=== PATIENT | female | born 1960 | race Caucasian/White ===

== ENCOUNTER 2018-09-16 16:07 | Inpatient (IN) ==
[2018-09-16] MEDS ORDERED: Levofloxacin 500 MG/100 ML 500 MG/100 ML BAG IVPB ONE (16:35)
[2018-09-16] MEDS ORDERED: 0.9 % Sodium Chloride 1,000 ML IVC ONE (16:35)
[2018-09-16] MEDS ORDERED: Ipratropium/Albuterol Neb 3 ML IH ONE ×2 (16:39)
[2018-09-16 17:08] LABS: Basophils % 0.1 %; Eosinophils % 0.3 %; Hematocrit 40.3 % (35.3-44.9); Hemoglobin 13.8 g/dL (11.5-15.4); Immature Granulocytes % 0.4 % (0-4); Lymphocytes # 0.5 K/mcL (0.6-4.6); Lymphocytes % 7.9 %; Mean Corpuscular HGB Conc 34.2 g/dL (31.6-35.5); Mean Corpuscular Hemoglobin 30.2 pg (28.0-33.3); Mean Corpuscular Volume 88.2 fL (83.0-100.0); Mean Platelet Volume 11.1 fL (9.4-12.4); Monocytes # 0.4 K/mcL (0.0-1.3); Neutrophils # 5.9 K/mcL (1.6-8.9); Red Blood Count 4.57 M/mcL (3.82-4.97); Red Cell Distribution Width 14.8 % (11.5-14.5); Segmented Neutrophils % 85.3 %
[2018-09-16] MEDS ORDERED: Acetaminophen 325 MG TABLET PO ONE (17:16)
[2018-09-16 17:20] LABS: Alanine Aminotransferase 38 Units/L (7-52); Albumin 3.6 g/dL (3.5-5.7); Albumin/Globulin Ratio 0.8 (1.1-2.2); Alkaline Phosphatase 102 Units/L (34-104); Aspartate Amino Transferase 92 Units/L (13-39); BUN/Creatinine Ratio 15 (6-26); Bilirubin,Total 0.7 mg/dL (0.3-1.0); Blood Urea Nitrogen 16 mg/dL (8-23); Calcium 8.8 mg/dL (8.6-10.3); Carbon Dioxide 25 mEq/L (23-29); Chloride 88 mEq/L (98-107); Globulin 4.5 g/dL (2.4-3.5); Glucose 130 mg/dL (70-105); Osmolality,Calculated 255 (280-300); Potassium 3.1 mEq/L (3.5-5.1); Sodium 121 mEq/L (136-145); Total Protein 8.1 g/dL (6.4-8.9); eGFR For Non-African Americans 54 (> 60)
[2018-09-16 17:21] LABS: Platelet Count 85 K/mcL (140-400)
[2018-09-16 17:22] LABS: Platelet Estimate Marked Decrease (Normal)
[2018-09-16 17:23] LABS: Troponin I < 0.03 ng/mL (< 0.04)
[2018-09-16 17:24] LABS: VBG HCO3 21 mEq/L (21-27); VBG PCO2 26 mmHg (41-51); VBG PH 7.52 pH Units (7.32-7.42); VBG PO2 37 mmHg (25-50)
[2018-09-16] MEDS ORDERED: MethylPREDNISolone 40 MG/ML VIAL IVP ONE ×2 (17:52→18:33)
[2018-09-16 18:09] LABS: INR 1.3; Prothrombin Time 14.5 Seconds (9.4-12.1)
[2018-09-16 18:11] LABS: Activated Partial Thrombo Time 37.3 Seconds (26.0-36.0)
[2018-09-16] MEDS ORDERED: Naloxone 0.4 MG/ML INJ IVP PRN ×2 (18:33)
[2018-09-16] MEDS ORDERED: 0.9 % Sodium Chloride 1,000 ML IVC SCH ×2 (18:33→20:48)
[2018-09-16] MEDS ORDERED: Ondansetron 4 MG/2 ML VIAL IVP PRN (18:33)
--- NOTE | 2018-09-16 18:37 | Emergency Department Note ---
Disposition Clinical Impression: Acute exacerbation of chronic obstructive airways disease Disposition: Admitted As Inpatient Condition: Fair Time of Disposition: 18:10 SOB HPI - General Chief Complaint: ED Shortness of Breath/Dyspnea Stated Complaint: cold Time Seen by Provider: 09/16/18 16:20 Source: patient Limitations: no limitations Nursing Notes Reviewed: Yes Vital Signs Reviewed: Yes - History of Present Illness For the last 4 days Ms. Noble has had a nonproductive cough increased shortness of breath. No fevers. Positive nausea vomiting and diarrhea. She her by mouth intake has decreased markedly because of this. She is a smoker is not on home oxygen but does use albuterol nebulize twice a day. If she does not she feels more short of breath. No chest pain palpitations abdominal pain no urinary complaints no muscle aches. - Related Data Home Medications Medication Instructions Recorded Confirmed Albuterol Sulfate [Albuterol 0 puff IH Q4HR 05/26/15 09/16/18 Inhaler] Lisinopril [Zestril] 20 mg PO DAILY 05/26/15 09/16/18 Montelukast Sodium 10 mg PO DAILY 12/16/17 09/16/18 Nabumetone 500 mg PO BID PRN 12/16/17 09/16/18 Previous Rx's Medication Instructions Recorded EPINEPHrine [Epipen JR] 0.3 mg IJ ONCE #1 mls 03/03/16 Ibuprofen [Motrin] 600 mg PO Q8HR #20 tab 12/16/17 Allergies Allergy/AdvReac Type Severity Reaction Status Date / Time chlorpromazine AdvReac Joint Pain Verified 12/16/17 10:53 [From Thorazine] codeine AdvReac See Verified 05/26/15 17:16 Comments morphine AdvReac See Verified 05/26/15 17:16 Comments Constitutional: Reports: fever, chills ENT ED: Reports: congestion (This has resolved over the last couple of days) Cardiovascular: Reports: dyspnea on exertion Respiratory: Reports: cough. Denies: sputum production Gastrointestinal: Reports: nausea, vomiting, diarrhea Genitourinary: Reports: as per HPI Musculoskeletal: Denies: myalgia Integumentary: Denies: rash Neurological: Denies: headache Endocrine: Reports: fatigue Hematological/Lymphatic: Denies: easy bleeding, easy bruising Past Medical History - Past Medical History Medical history: Reports: COPD, hepatitis, hypertension Surgical history: Reports: cholecystectomy, hysterectomy Psychiatric history: Reports: no psych history - Social History Smoking Status: Current every day smoker Smokeless Tobacco Status: No Alcohol use: Reports: occasionally, heavy Drug use: Reports: marijuana Physical Exam - General Limitations: no limitations General appearance: alert, in distress - Head Head exam: atraumatic, normocephalic - Eye Eye exam: Present: normal appearance - ENT ENT exam: normal oropharynx, mucous membranes dry - Neck Neck exam: Present: normal inspection - Chest Chest inspection: Present: normal inspection, symmetric chest wall rise - Respiratory Respiratory exam: Present: respiratory distress (However able to speak in full sentences), wheezes (Inspiratory crackles left mid sound moist and are greater than contralateral side. Expiratory wheezes with fair air exchange.). Absent: accessory muscle use - Cardiovascular Cardiovascular exam: Present: tachycardia - Abdominal Exam Abdominal exam: Present: soft, Non-Tender - Extremities Exam Extremities exam: Present: normal inspection. Absent: pedal edema, calf tenderness (No calf cord erythema or edema) - Neurological Exam Neurological exam: Present: alert - Psychiatric Psychiatric exam: Present: normal affect, normal mood - Skin Skin exam: Present: warm, dry Course Vital Signs Temperature 100.3 F H 09/16/18 16:30 Pulse Rate 105 09/16/18 16:30 Respiratory Rate 20 09/16/18 16:30 Blood Pressure 116/71 09/16/18 16:30 O2 Sat by Pulse Oximetry 89 09/16/18 16:30 Temperature 98.3 F 09/16/18 19:15 Pulse Rate 88 09/16/18 19:15 Respiratory Rate 20 09/16/18 19:15 Blood Pressure 114/76 09/16/18 19:15 O2 Sat by Pulse Oximetry 97 09/16/18 19:15 Oxygen Delivery Oxygen Delivery Nasal Cannula Shortness of Breath/Dyspnea - [facility] Narrative Medical decision making narrative: COPD exacerbation. She felt subjectively better after 2 DuoNeb's. Better air exchange although she continues to wheeze. She might also have a left middle lobe pneumonia although this did not show up on chest x-ray. Levaquin 500 IV given here in the emergency department along with Solu-Medrol. Increased d- dimer noted but this is right at age adjusted norms therefore CT PE not undertaken. Ms. Noble is in stable condition awaiting transfer to the floor. Hyponatremia. Probably secondary to low by mouth intake. She received 2 L normal saline here in the emergency department and we will run her at 125 overnight and rechecked this in the morning. Hypokalemia. She was no longer feeling nauseated by the time she got to the emergency department and was tolerating by mouth supplementation of potassium. She has an O2 requirement now as she dropped to the mid to high 80s on room air. Prudent to admit her here to the hospital. I spoke with covering hospitalist here at [facility] and presented the case. He accepted admission. I was later informed that she is a patient of the admitting group of family doctors here. I spoke with the covering number of that group and presented the case. She to accepted admission. - Lab Data Lab results reviewed: Yes I reviewed the patient's lab results. Result diagrams: 09/16/18 16:57 09/16/18 16:57 Lab Results 09/16/18 09/16/18 09/16/18 Range/Units 16:57 16:57 16:57 WBC (4.3-11.1) K/mcL RBC (3.82-4.97) M/mcL Hgb (11.5-15.4) g/dL Hct (35.3-44.9) % MCV (83.0-100.0) fL MCH (28.0-33.3) pg MCHC (31.6-35.5) g/dL RDW (11.5-14.5) % Plt Count (140-400) K/mcL MPV (9.4-12.4) fL Immature Gran % (0-4) % Seg Neutrophils % % Lymphocytes % % Monocytes % % Eosinophils % % Basophils % % Neutrophils # (1.6-8.9) K/mcL Lymphocytes # (0.6-4.6) K/mcL Monocytes # (0.0-1.3) K/mcL Eosinophils # (0.0-0.6) K/mcL Basophils # (0.0-0.2) K/mcL Platelet Estimate (Normal) PT (9.4-12.1) Seconds INR APTT (26.0-36.0) Seconds D-Dimer 616 H (0-500) ng/mLFEU VBG pH (7.32-7.42) pH Units VBG pCO2 (41-51) mmHg VBG pO2 (25-50) mmHg VBG HCO3 (21-27) mEq/L Sodium 121 L (136-145) mEq/L Potassium 3.1 L (3.5-5.1) mEq/L Chloride 88 L (98-107) mEq/L Carbon Dioxide 25 (23-29) mEq/L BUN 16 (8-23) mg/dL Creatinine 1.04 (0.60-1.20) mg/dL Est GFR ( Amer) > 60 (> 60) Est GFR (Non-Af Amer) 54 L (> 60) BUN/Creatinine Ratio 15 (6-26) Glucose 130 H (70-105) mg/dL Calculated Osmolality 255 L (280-300) Lactic Acid 2.0 (0.5-2.2) mmol/L Calcium 8.8 (8.6-10.3) mg/dL Magnesium (1.6-2.6) mg/dL Total Bilirubin 0.7 (0.3-1.0) mg/dL AST 92 H (13-39) Units/L ALT 38 (7-52) Units/L Alkaline Phosphatase 102 (34-104) Units/L Troponin I < 0.03 (< 0.04) ng/mL Serum Total Protein 8.1 (6.4-8.9) g/dL Albumin 3.6 (3.5-5.7) g/dL Globulin 4.5 H (2.4-3.5) g/dL Albumin/Globulin Ratio 0.8 L (1.1-2.2) 09/16/18 09/16/18 09/16/18 Range/Units 16:57 16:57 16:57 WBC 6.9 (4.3-11.1) K/mcL RBC 4.57 (3.82-4.97) M/mcL Hgb 13.8 (11.5-15.4) g/dL Hct 40.3 (35.3-44.9) % MCV 88.2 (83.0-100.0) fL MCH 30.2 (28.0-33.3) pg MCHC 34.2 (31.6-35.5) g/dL RDW 14.8 H (11.5-14.5) % Plt Count 85 L (140-400) K/mcL MPV 11.1 (9.4-12.4) fL Immature Gran % 0.4 (0-4) % Seg Neutrophils % 85.3 % Lymphocytes % 7.9 % Monocytes % 6.0 % Eosinophils % 0.3 % Basophils % 0.1 % Neutrophils # 5.9 (1.6-8.9) K/mcL Lymphocytes # 0.5 L (0.6-4.6) K/mcL Monocytes # 0.4 (0.0-1.3) K/mcL Eosinophils # 0.0 (0.0-0.6) K/mcL Basophils # 0.0 (0.0-0.2) K/mcL Platelet Estimate Marked Decrease L (Normal) PT 14.5 H (9.4-12.1) Seconds INR 1.3 APTT 37.3 H (26.0-36.0) Seconds D-Dimer (0-500) ng/mLFEU VBG pH (7.32-7.42) pH Units VBG pCO2 (41-51) mmHg VBG pO2 (25-50) mmHg VBG HCO3 (21-27) mEq/L Sodium (136-145) mEq/L Potassium (3.5-5.1) mEq/L Chloride (98-107) mEq/L Carbon Dioxide (23-29) mEq/L BUN (8-23) mg/dL Creatinine (0.60-1.20) mg/dL Est GFR ( Amer) (> 60) Est GFR (Non-Af Amer) (> 60) BUN/Creatinine Ratio (6-26) Glucose (70-105) mg/dL Calculated Osmolality (280-300) Lactic Acid (0.5-2.2) mmol/L Calcium (8.6-10.3) mg/dL Magnesium 1.7 (1.6-2.6) mg/dL Total Bilirubin (0.3-1.0) mg/dL AST (13-39) Units/L ALT (7-52) Units/L Alkaline Phosphatase (34-104) Units/L Troponin I (< 0.04) ng/mL Serum Total Protein (6.4-8.9) g/dL Albumin (3.5-5.7) g/dL Globulin (2.4-3.5) g/dL Albumin/Globulin Ratio (1.1-2.2) 09/16/18 Range/Units 17:18 WBC (4.3-11.1) K/mcL RBC (3.82-4.97) M/mcL Hgb (11.5-15.4) g/dL Hct (35.3-44.9) % MCV (83.0-100.0) fL MCH (28.0-33.3) pg MCHC (31.6-35.5) g/dL RDW (11.5-14.5) % Plt Count (140-400) K/mcL MPV (9.4-12.4) fL Immature Gran % (0-4) % Seg Neutrophils % % Lymphocytes % % Monocytes % % Eosinophils % % Basophils % % Neutrophils # (1.6-8.9) K/mcL Lymphocytes # (0.6-4.6) K/mcL Monocytes # (0.0-1.3) K/mcL Eosinophils # (0.0-0.6) K/mcL Basophils # (0.0-0.2) K/mcL Platelet Estimate (Normal) PT (9.4-12.1) Seconds INR APTT (26.0-36.0) Seconds D-Dimer (0-500) ng/mLFEU VBG pH 7.52 H (7.32-7.42) pH Units VBG pCO2 26 L (41-51) mmHg VBG pO2 37 (25-50) mmHg VBG HCO3 21 (21-27) mEq/L Sodium (136-145) mEq/L Potassium (3.5-5.1) mEq/L Chloride (98-107) mEq/L Carbon Dioxide (23-29) mEq/L BUN (8-23) mg/dL Creatinine (0.60-1.20) mg/dL Est GFR ( Amer) (> 60) Est GFR (Non-Af Amer) (> 60) BUN/Creatinine Ratio (6-26) Glucose (70-105) mg/dL Calculated Osmolality (280-300) Lactic Acid (0.5-2.2) mmol/L Calcium (8.6-10.3) mg/dL Magnesium (1.6-2.6) mg/dL Total Bilirubin (0.3-1.0) mg/dL AST (13-39) Units/L ALT (7-52) Units/L Alkaline Phosphatase (34-104) Units/L Troponin I (< 0.04) ng/mL Serum Total Protein (6.4-8.9) g/dL Albumin (3.5-5.7) g/dL Globulin (2.4-3.5) g/dL Albumin/Globulin Ratio (1.1-2.2) - Radiology Data Radiology results reviewed: Yes I reviewed the patient's radiology results. - EKG Data EKG attestation: Yes I reviewed and interpreted this EKG. EKG results narrative: EKG as interpreted by me sinus tachycardia 108 beats per minutes. There are 2 PVCs in the rhythm strip of differing morphology. Right axis deviation. No ST elevations or depressions. No T-wave abnormalities. No comparison available.
--- NOTE | 2018-09-16 19:53 | Internal Med History&Physical ---
Date of Encounter: 09/16/18 Time of Encounter: 20:44 Assessment and Plan (1) COPD exacerbation Current visit: Yes Status: Acute solumedrol, oxygen, nebs, levaquin (2) Hepatitis C Current visit: Yes Status: Acute She has nausea liver doctor in 20 years we will repeat her hepatitis viral load discussed that she may referred to GI as an outpatient. 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 Discussed that she really needs to stop drinking. Will repeat liver functions in the morning (4) HTN (hypertension) Current visit: Yes Status: Acute Will continue her home medication as well as her blood pressure allows it. Qualifiers: Hypertension type: essential hypertension Qualified Code(s): I10 - Essential (primary) hypertension (5) Tobacco abuse Current visit: Yes Status: Acute Tobacco cessation discussed discussed that she needs to quit smoking she states she has not had anything in a week. (6) Thrombocytopenia Current visit: Yes Status: Acute likely due to the hep c and liver disease. will repeat in the am (7) ETOH abuse Current visit: Yes Status: Acute will watch for withdrawl will give benzo if present. She states that she has a DTs are she said that she slept for the first 5 days after quitting alcohol. Discussed if she has any signs jittery shaking term tremors irritability sliding then we will give her medication for withdrawal. We will continue to observe (8) Hypokalemia Current visit: Yes Status: Acute she is getting po replacement. Likely due to the nausea vomiting and dehydration. Will repeat a BMP in the morning (9) Hyponatremia Current visit: Yes Status: Acute likely due to dehydration she is getting ivf she has any new anything in the past 5 days she has only been eating ice chips for liquids. She is getting IV fluids we will reevaluate in the morning with a BMP (10) Elevated d-dimer Current visit: Yes Status: Acute She also has hypoxia. She has been laying around for the past week. She does have risk for DVT we will check a CT rule out PE. Discussed that the CT scan can affect her kidney function she is getting IV fluids to hopefully help with renal protection Internal Medicine - H&P: HPI Chief complaint: can/t breath Admitted From: Home Plans for Post Hospital Care: Home History of present illness: Ms. Noble is a 58 year old female With a past medical history of COPD hepatitis C alcohol use tobacco abuse who presents to the emergency room after she has been short of breath. She has been ill for the past week. She has had fever she has had chills she has had green sputum she has been wheezing her chest is tight she short of breath she has been dizzy when she gets up and moves around she is felt weak she did have some emesis that has stopped 2 days ago. She has had occasional nausea she has not eaten anything in 5 days she has only 8 ice chips. She has had decreased urination she currently is struggling to make any urine at all. She quit smoking she quit alcohol about 7 days ago when she first started getting sick. She initially had tremors when she quit alcohol but has not had problems with it since. She has been sleeping for the past several days. She has not been getting up and moving around. She got progressively worse she got more short of breath her cough increased. She did not come to the office because she knew she was really sick and she brought herself to the emergency room. In the ER she was found to be hypoxic without oxygen requirement. She was given Solu-Medrol and duo nebs. She is not really feeling much better. She has a pretty rough cough. She has coughed up some green sputum here in the room. She has a history of hepatitis C but has not seen a liver doctor since she lived in [place] 20 years ago. She states she got hep C from a blood transfusion at the time of the of her son it was a difficult delivery and he has cerebral palsy. Past Med Surg Social Fam HX - Past Medical History Medical history: cancer (cervical), COPD, hepatitis (c), hypertension, kidney stones, liver disease ( from transfsion 1979 with of son) Additional medical history: liver damage Psychiatric history: no psych history - Past Surgical History Surgical History: cholecystectomy (), hysterectomy (bso 1979, cervical cancer), other (shoulder arthroscopy 12/16/17, kidney stone percutaneous eph tube) Additional surgical history: Lithotrypsy - Social History Smoking Status: Current every day smoker (but states none for a wk due to illess) Smokeless Tobacco Status: No Alcohol use: occasionally, heavy (6 pack a night, but not for the past week due to illness) Drug use: marijuana Internal Medicine - H&P: Meds Albuterol Sulfate [Albuterol Inhaler] 0 puff IH Q4HR 05/26/15 [History] Lisinopril [Zestril] 20 mg PO DAILY 05/26/15 [History] EPINEPHrine [Epipen JR] 0.3 mg IJ ONCE #1 mls 03/03/16 [Rx] Ibuprofen [Motrin] 600 mg PO Q8HR #20 tab 12/16/17 [Rx] Montelukast Sodium 10 mg PO DAILY 12/16/17 [History] Nabumetone 500 mg PO BID PRN 12/16/17 [History] Allergy/AdvReac Type Severity Reaction Status Date / Time chlorpromazine AdvReac Joint Pain Verified 12/16/17 10:53 [From Thorazine] codeine AdvReac See Verified 05/26/15 17:16 Comments morphine AdvReac See Verified 05/26/15 17:16 Comments All Systems PM: A 10-system review of systems was performed and is negative for pertinent findings except as documented above in the HPI. - Constitutional Constitutional: anorexia, chills, fatigue, fever(s), lethargy, malaise, weakness (Generalized) - EENT Eyes: no change in vision Nose, mouth and throat: dry mouth, no sore throat - Cardiovascular Cardiovascular ROS IM: dyspnea, dyspnea on exertion, lightheadedness, no chest pain, no edema, no irregular heart rhythm, no palpitations, no paroxysmal nocturnal dyspnea, no other - Respiratory Respiratory: cough, dyspnea, wheezing, chest congestion, excessive phlegm production, pain with cough, no hemoptysis - Gastrointestinal Gastrointestinal: diarrhea (She did 2 days ago), nausea, vomiting (But none in 2 days), no abdominal pain, no constipation, no hematemesis, no hematochezia - Genitourinary Genitourinary: difficulty voiding (There just has not been much urine), no dysuria, no hematuria - Musculoskeletal Musculoskeletal ROS IM: no limited range of motion, no numbness - Integumentary Integumentary IM: no pruritus, no rash, no jaundice - Neurological Neurological ROS: dizziness, tremor(s) (She says she has a tremor from alcohol), weakness (Generalized), no abnormal speech, no frequent falls, no numbness - Psychiatric Psychiatric: no anxiety, no depression - Endocrine Endocrine IM: fatigue - Constitutional Vitals: Temp Pulse Resp BP Pulse Ox 98.3 F 88 20 114/76 97 09/16/18 19:15 09/16/18 19:15 09/16/18 19:15 09/16/18 19:15 09/16/18 19:15 General appearance: Present: A&O X 3, pleasant, answers questions appropriately. Absent: no acute distress - Head Head exam: Present: atraumatic, normocephalic - Neck Neck exam general surgery: Present: supple, trachea midline. Absent: lymphade nopathy - Respiratory Respiratory exam: Present: prolonged expiratory phase, rhonchi (Left lower lobe), wheezes (Occasional). Absent: decreased breath sounds (At bases) - Cardiovascular Cardiovascular exam: Present: RRR. Absent: systolic murmur - GI/Abdominal GI/Abdominal exam: Present: hernia (Umbilical), normal bowel sounds, soft, no peritoneal signs. Absent: tenderness - Extremities Exam Extremities exam: Present: normal capillary refill, pedal edema, warm. Absent: mottling - Skin Skin exam: Present: dry, warm. Absent: diaphoretic Internal Med - H&P Results - Labs CBC & Chem 7: 09/16/18 16:57 09/16/18 16:57 Labs: Short CBC 09/16/18 Range/Units 16:57 WBC 6.9 (4.3-11.1) K/mcL Hgb 13.8 (11.5-15.4) g/dL Hct 40.3 (35.3-44.9) % Plt Count 85 L (140-400) K/mcL Neutrophils # 5.9 (1.6-8.9) K/mcL BMP 09/16/18 16:57 Sodium 121 L Potassium 3.1 L Chloride 88 L Carbon Dioxide 25 BUN 16 Creatinine 1.04 Glucose 130 H Calcium 8.8 Cardiac Enzymes 09/16/18 Range/Units 16:57 Troponin I < 0.03 (< 0.04) ng/mL Liver Function 09/16/18 Range/Units 16:57 Total Bilirubin 0.7 (0.3-1.0) mg/dL AST 92 H (13-39) Units/L ALT 38 (7-52) Units/L Alkaline Phosphatase 102 (34-104) Units/L Albumin 3.6 (3.5-5.7) g/dL - ABG Interpretation ABG results: 09/16/18 17:18 VBG pH 7.52 H VBG pCO2 26 L VBG pO2 37 VBG HCO3 21 - Impressions ITS Impressions Chest X-Ray 09/16/18 16:38 IMPRESSION: Cardiomegaly. Nonspecific interstitial densities bilateral lungs may be related to interstitial pneumonitis or sequela from smoking. D/ / William Bolanos / William Bolanos Interpreting Provider: William Bolanos
[2018-09-16] MEDS ORDERED: Isovue-370 500 ML BOTTLE IVP ONE (20:33)
[2018-09-16] MEDS: methylPREDNISolone 125 MG/2 ML VIAL IVP SCH ×2 (21:33→23:43)
[2018-09-16] MEDS: Benzonatate 100 MG CAPSULE PO PRN (21:39)
[2018-09-16 22:04] LABS: Bilirubin,Urine Negative (Negative); Blood,Urine Trace-intact (Negative); Clarity,Urine Clear (Clear); Color,Urine Yellow (Yellow); Glucose,Urine (UA) Normal (Normal); Ketones,Urine Negative (Negative); Leukocyte Esterase,Urine Negative (Negative); Nitrite,Urine Negative (Negative); PH,Urine 5.5 pH Units (5.0-8.0); Protein,Urine Negative (Neg-Trace); Urobilinogen,Urine Normal (Normal)
[2018-09-16 22:11] LABS: Hyaline Casts,Urine Few per lpf (None-Few); Squamous Epithelial Cell,Urine Moderate per lpf (None-Few)
[2018-09-16 22:12] LABS: RBC,Urine 0-3 per hpf (0-3)
[2018-09-16 22:13] LABS: Bacteria,Urine Few per hpf (None-Few)
[2018-09-16 22:16] LABS: Amphetamine Screen,Urine Negative ng/mL (Cutoff=1000); Barbiturate Screen,Urine Negative ng/mL (Cutoff=200); Benzodiazepines Screen,Urine Negative ng/mL (Cutoff=200); Cannabinoid Screen,Urine Negative ng/mL (Cutoff = 50); Cocaine Screen,Urine Negative ng/mL (Cutoff= 300); Opiate Screen,Urine Negative ng/mL (Cutoff=300); Phencyclidine Screen,Urine Negative ng/mL (Cutoff=25)
[2018-09-16] MEDS: Ipratropium/Albuterol Neb 3 ML IH PRN (23:43)
[2018-09-17] MEDS: 0.9 % Sodium Chloride 1,000 ML IVC SCH ×6 (00:48→19:57)
[2018-09-17] MEDS: Ipratropium/Albuterol Neb 3 ML IH PRN ×4 (04:36→22:37)
[2018-09-17] MEDS: Benzonatate 100 MG CAPSULE PO PRN ×3 (04:36→22:36)
[2018-09-17] MEDS: methylPREDNISolone 125 MG/2 ML VIAL IVP SCH ×3 (05:55→17:12)
[2018-09-17] MEDS ORDERED: *HR* Enoxaparin 30 MG/0.3 ML SYRINGE SQ SCH (06:00)
[2018-09-17 06:06] LABS: Albumin 3.1 g/dL (3.5-5.7); Albumin/Globulin Ratio 0.8 (1.1-2.2); Bilirubin,Direct 0.3 mg/dL (0.0-0.2); Bilirubin,Indirect 0.3 mg/dL (0.0-1.2); Bilirubin,Total 0.6 mg/dL (0.3-1.0); Total Protein 7.1 g/dL (6.4-8.9)
[2018-09-17 06:48] LABS: BUN/Creatinine Ratio 14 (6-26); Blood Urea Nitrogen 8 mg/dL (8-23); Calcium 7.8 mg/dL (8.6-10.3); Carbon Dioxide 23 mEq/L (23-29); Chloride 94 mEq/L (98-107); Glucose 168 mg/dL (70-105); Magnesium 1.5 mg/dL (1.6-2.6); Osmolality,Calculated 258 (280-300); Potassium 3.2 mEq/L (3.5-5.1); Sodium 123 mEq/L (136-145); eGFR For Non-African Americans > 60 (> 60)
[2018-09-17 07:06] LABS: Basophils % 0.2 %; Hematocrit 36.7 % (35.3-44.9); Hemoglobin 12.5 g/dL (11.5-15.4); Immature Granulocytes % 0.2 % (0-4); Lymphocytes # 0.5 K/mcL (0.6-4.6); Lymphocytes % 11.4 %; Mean Corpuscular HGB Conc 34.1 g/dL (31.6-35.5); Mean Corpuscular Hemoglobin 30.4 pg (28.0-33.3); Mean Corpuscular Volume 89.3 fL (83.0-100.0); Mean Platelet Volume 12.5 fL (9.4-12.4); Monocytes # 0.1 K/mcL (0.0-1.3); Monocytes % 2.5 %; Neutrophils # 3.8 K/mcL (1.6-8.9); Red Blood Count 4.11 M/mcL (3.82-4.97); Red Cell Distribution Width 14.6 % (11.5-14.5); Segmented Neutrophils % 85.7 %
[2018-09-17 07:24] LABS: Platelet Count 55 K/mcL (140-400)
[2018-09-17 07:26] LABS: Platelet Estimate Marked Decrease (Normal)
[2018-09-17 07:27] LABS: Ovalocytes 1+ (Not Present)
[2018-09-17] MEDS: Lisinopril 20 MG TABLET PO SCH (08:21)
[2018-09-17] MEDS: Multivit/Ca/Min/Fe/FA 1 TAB TABLET PO SCH (11:22)
[2018-09-17] MEDS: Magnesium Oxide 400 MG TABLET PO SCH ×2 (11:22→19:56)
--- NOTE | 2018-09-17 12:19 | Internal Med Progress Note ---
Date of Encounter: 09/17/18 Time of Encounter: 10:15 - Assessment and plan (1) COPD exacerbation Current Visit: Yes Status: Acute Assessment and plan: she is about the same will continue oxygen, duonebs, solumedrol, levaquin (2) Hepatitis C Current Visit: Yes Status: Acute Assessment and plan: will refer her to gi as an outpatient. 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 she states she has been too sik to drink for the past week. no current signs of dt. she is aware of the signs too. discussed to inform if she felt any withdrawl (4) HTN (hypertension) Current Visit: Yes Status: Acute Assessment and plan: bp has been stable on home medication Qualifiers: Hypertension type: essential hypertension Qualified Code(s): I10 - Essential (primary) hypertension (5) Tobacco abuse Current Visit: Yes Status: Acute Assessment and plan: discussed her abnormal chest ct and her need to quit smoking (6) Thrombocytopenia Current Visit: Yes Status: Acute Assessment and plan: it is lower this am no active bleeding but cannot give her lovenox for dvt prophylaxis now. on solumedrol for her copd exacerbation. likely due to the hep c (7) ETOH abuse Current Visit: Yes Status: Acute Assessment and plan: watching for withdrawl symptoms none present currently (8) Hypokalemia Current Visit: Yes Status: Acute Assessment and plan: will give more oral replacement likely due to dehydration and now with diarrhea (9) Hyponatremia Current Visit: Yes Status: Acute Assessment and plan: improved with ivf likely due to dehydration and chronic etoh use. she does have an abnormal ct (10) Elevated d-dimer Current Visit: Yes Status: Acute Assessment and plan: her pulm art did not completely opacify, but no emboli noted. (11) Abnormal chest CT Current Visit: Yes Status: Acute Assessment and plan: discussed with patient her ct result. discussed could be inflam,infectious or malignancy. will refer to pulm. Agatha norman her pcp is aware and will make the rf from the office - Subjective Interval history: her breathing is the same today. still with the cough and purulent sputum, she does have some nausea, no emesis, she has had several episodes of diarrhea. no abd pain but having cramping. no dizzy but still feel tired, no chest pain - Constitutional Vitals: Temp Pulse Resp BP Pulse Ox 97.7 F 72 18 118/71 90 09/17/18 11:00 09/17/18 11:00 09/17/18 11:00 09/17/18 11:00 09/17/18 08:25 General appearance: Present: A&O X 3, pleasant, answers questions appropriately. Absent: no acute distress - Head Head exam: Present: atraumatic, normocephalic - Neck Neck exam general surgery: Present: supple, trachea midline. Absent: lym phadenopathy - Respiratory Respiratory exam: Present: decreased breath sounds, prolonged expiratory phase, rhonchi (lll), wheezes. Absent: accessory muscle use - Cardiovascular Cardiovascular exam: Present: RRR, +S1, +S2 - GI/Abdominal GI/Abdominal exam: Present: distended (slighltly), soft. Absent: guarding, mass, normal bowel sounds, rebound, tenderness, no peritoneal signs - Extremities Exam Extremities exam: Present: normal capillary refill, warm. Absent: mottling, pedal edema - Skin Skin exam: Present: dry, warm. Absent: rash Internal Medicine: Result - Labs CBC & Chem 7: 09/17/18 06:47 09/17/18 04:47 Labs: Short CBC 09/16/18 09/17/18 Range/Units 16:57 06:47 WBC 6.9 4.4 (4.3-11.1) K/mcL Hgb 13.8 12.5 (11.5-15.4) g/dL Hct 40.3 36.7 (35.3-44.9) % Plt Count 85 L 55 L (140-400) K/mcL Neutrophils # 5.9 3.8 (1.6-8.9) K/mcL BMP 09/16/18 09/17/18 16:57 04:47 Sodium 121 L 123 L Potassium 3.1 L 3.2 L Chloride 88 L 94 L Carbon Dioxide 25 23 BUN 16 8 Creatinine 1.04 0.59 L Glucose 130 H 168 H Calcium 8.8 7.8 L Cardiac Enzymes 09/16/18 Range/Units 16:57 Troponin I < 0.03 (< 0.04) ng/mL Liver Function 09/16/18 09/17/18 Range/Units 16:57 04:47 Total Bilirubin 0.7 0.6 (0.3-1.0) mg/dL Direct Bilirubin 0.3 H (0.0-0.2) mg/dL AST 92 H 80 H (13-39) Units/L ALT 38 32 (7-52) Units/L Alkaline Phosphatase 102 85 (34-104) Units/L Albumin 3.6 3.1 L (3.5-5.7) g/dL Urine 09/16/18 Range/Units 21:59 Urine Color Yellow (Yellow) Urine Clarity Clear (Clear) Urine pH 5.5 (5.0-8.0) pH Units Ur Specific [place] 1.020 (1.010-1.025) Urine Protein Negative (Neg-Trace) mg/dL Urine Glucose (UA) Normal (Normal) mg/dL - ABG Interpretation ABG results: PT/INR, D-dimer PT 14.5 Seconds (9.4-12.1) H 09/16/18 16:57 D-Dimer 616 ng/mLFEU (0-500) H 09/16/18 16:57 - Impressions Impressions Chest X-Ray 09/16/18 16:38 IMPRESSION: Cardiomegaly. Nonspecific interstitial densities bilateral lungs may be related to interstitial pneumonitis or sequela from smoking. D/ / William Bolanos / William Bolanos Interpreting Provider: William Bolanos Chest CTA 09/16/18 20:33 IMPRESSION: Bilateral nonspecific mosaic pattern interstitial infiltrates. Differential considerations include infectious, inflammatory, and neoplastic etiologies. Follow-up recommended. Coronary artery disease. D/ / Blane Pope MD / Blane Pope MD Interpreting Provider: Blane Pope MD Consult Discharge Plan - Plan Referrals: Mei Norman, MACHINE [employer]TH[employer] REPORTER [Advanced Practice Nurse] -
[2018-09-17 16:02] LABS: Hematocrit 35.8 % (35.3-44.9); Hemoglobin 12.2 g/dL (11.5-15.4); Immature Granulocytes % 1.1 % (0-4); Lymphocytes # 0.4 K/mcL (0.6-4.6); Lymphocytes % 16.1 %; Mean Corpuscular HGB Conc 34.1 g/dL (31.6-35.5); Mean Corpuscular Hemoglobin 30.5 pg (28.0-33.3); Mean Corpuscular Volume 89.5 fL (83.0-100.0); Mean Platelet Volume 11.2 fL (9.4-12.4); Monocytes # 0.2 K/mcL (0.0-1.3); Monocytes % 5.5 %; Neutrophils # 2.1 K/mcL (1.6-8.9); Red Cell Distribution Width 14.7 % (11.5-14.5); Segmented Neutrophils % 77.3 %
[2018-09-17 16:03] LABS: Platelet Count 57 K/mcL (140-400)
[2018-09-17 16:11] LABS: BUN/Creatinine Ratio 14 (6-26); Blood Urea Nitrogen 7 mg/dL (8-23); Calcium 7.9 mg/dL (8.6-10.3); Carbon Dioxide 23 mEq/L (23-29); Chloride 98 mEq/L (98-107); Glucose 193 mg/dL (70-105); Magnesium 1.6 mg/dL (1.6-2.6); Osmolality,Calculated 265 (280-300); Potassium 3.4 mEq/L (3.5-5.1); Sodium 126 mEq/L (136-145); eGFR For Non-African Americans > 60 (> 60)
--- NOTE | 2018-09-17 16:24 | Electrocardiograph Report ---
[place] [id number] Test Date: 2018-09-16 Pat Name: Tamika Noble Department: [facility] Room: 115 Gender: F Nnp: : [id number] Requested By: Walter Acevedo Order Number: [id number] Reading MD: Farrah Lino Measurements Intervals [place] Rate: 108 P: 68 NM: 127 QRS: 106 QRSD: 94 T: 41 QT: 332 QTc: 445 Interpretive Statements Sinus tachycardia Sinus arrhythmia Ventricular premature complexes Electronically Signed On 09-17-2018 16:22:55 EST by Farrah Lino
[2018-09-17] MEDS: Levofloxacin 500 MG/100 ML 500 MG/100 ML BAG IVPB SCH (17:12)
[2018-09-18] MEDS: methylPREDNISolone 125 MG/2 ML VIAL IVP SCH ×5 (00:19→23:59)
[2018-09-18] MEDS: 0.9 % Sodium Chloride 1,000 ML IVC SCH ×4 (00:24→18:42)
[2018-09-18 05:53] LABS: Hematocrit 34.6 % (35.3-44.9); Hemoglobin 11.6 g/dL (11.5-15.4); Immature Granulocytes % 1.4 % (0-4); Lymphocytes # 0.5 K/mcL (0.6-4.6); Lymphocytes % 13.4 %; Mean Corpuscular HGB Conc 33.5 g/dL (31.6-35.5); Mean Corpuscular Hemoglobin 29.7 pg (28.0-33.3); Mean Corpuscular Volume 88.7 fL (83.0-100.0); Mean Platelet Volume 11.4 fL (9.4-12.4); Monocytes # 0.2 K/mcL (0.0-1.3); Monocytes % 6.3 %; Neutrophils # 2.8 K/mcL (1.6-8.9); Red Cell Distribution Width 14.6 % (11.5-14.5); Segmented Neutrophils % 78.9 %
[2018-09-18 05:54] LABS: Platelet Count 64 K/mcL (140-400)
[2018-09-18] MEDS ORDERED: *HR* Enoxaparin 40 MG/0.4 ML SYRINGE SQ SCH (06:00)
[2018-09-18 06:11] LABS: Alanine Aminotransferase 26 Units/L (7-52); Albumin 2.8 g/dL (3.5-5.7); Albumin/Globulin Ratio 0.8 (1.1-2.2); Alkaline Phosphatase 71 Units/L (34-104); Aspartate Amino Transferase 63 Units/L (13-39); Bilirubin,Direct 0.2 mg/dL (0.0-0.2); Bilirubin,Indirect 0.3 mg/dL (0.0-1.2); Bilirubin,Total 0.5 mg/dL (0.3-1.0); Calcium 7.8 mg/dL (8.6-10.3); Carbon Dioxide 25 mEq/L (23-29); Chloride 98 mEq/L (98-107); Globulin 3.6 g/dL (2.4-3.5); Magnesium 1.6 mg/dL (1.6-2.6); Potassium 3.3 mEq/L (3.5-5.1); Sodium 126 mEq/L (136-145); Total Protein 6.4 g/dL (6.4-8.9); eGFR For Non-African Americans > 60 (> 60)
[2018-09-18 06:15] LABS: BUN/Creatinine Ratio 13 (6-26); Blood Urea Nitrogen 6 mg/dL (8-23); Glucose 166 mg/dL (70-105); Osmolality,Calculated 263 (280-300)
[2018-09-18] MEDS: Benzonatate 100 MG CAPSULE PO PRN ×2 (06:19→18:05)
[2018-09-18] MEDS: Ipratropium/Albuterol Neb 3 ML IH PRN ×3 (06:19→20:45)
[2018-09-18] MEDS: Lisinopril 20 MG TABLET PO SCH (09:12)
[2018-09-18] MEDS: Magnesium Oxide 400 MG TABLET PO SCH ×2 (09:12→20:28)
[2018-09-18] MEDS: Multivit/Ca/Min/Fe/FA 1 TAB TABLET PO SCH (09:12)
--- NOTE | 2018-09-18 10:28 | Internal Med Progress Note ---
Date of Encounter: 09/18/18 Time of Encounter: 10:26 - Assessment and plan (1) COPD exacerbation Current Visit: Yes Status: Acute Assessment and plan: she is about the same will continue oxygen, duonebs, solumedrol, levaquin,still oxygen depend (2) Hepatitis C Current Visit: Yes Status: Acute Assessment and plan: will refer her to gi as an outpatient. 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 she is aware of the signs too. discussed to inform if she felt any withdrawl. will add prn ativan (4) HTN (hypertension) Current Visit: Yes Status: Acute Assessment and plan: bp has been stable on home medication Qualifiers: Hypertension type: essential hypertension Qualified Code(s): I10 - Essential (primary) hypertension (5) Tobacco abuse Current Visit: Yes Status: Acute Assessment and plan: discussed her abnormal chest ct and her need to quit smoking (6) Thrombocytopenia Current Visit: Yes Status: Acute Assessment and plan: stable this am no active bleeding but cannot give her lovenox for dvt prophylaxis now. on solumedrol for her copd exacerbation. likely due to the hep c (7) ETOH abuse Current Visit: Yes Status: Acute Assessment and plan: watching for withdrawl symptoms starting to get aggitated ativan ordered prn (8) Hypokalemia Current Visit: Yes Status: Acute Assessment and plan: will give more oral replacement likely due to dehydration and diarrhea. increased but only half of her potassium today so far (9) Hyponatremia Current Visit: Yes Status: Acute Assessment and plan: improved with ivf likely due to dehydration and chronic etoh use. she does have an abnormal ct (10) Elevated d-dimer Current Visit: Yes Status: Acute Assessment and plan: her pulm art did not completely opacify, but no emboli noted. (11) Abnormal chest CT Current Visit: Yes Status: Acute Assessment and plan: discussed with patient her ct result. discussed could be inflam,infectious or malignancy. will refer to pulm. Agatha norman her pcp is aware and will make the rf from the office - Subjective Interval history: her breathing is the same today. still with the cough and purulent sputum, she does have some nausea, no emesis, she has had several episodes of diarrhea. but now more firem no abd pain but having cramping. no dizzy but still feel tired, no chest pain.shew was getting aggitated - Constitutional Vitals: Temp Pulse Resp BP Pulse Ox 97.7 F 96 18 144/85 93 09/18/18 07:00 09/18/18 07:00 09/18/18 04:54 09/18/18 07:00 09/18/18 07:00 General appearance: Present: A&O X 3, pleasant, answers questions appropriately. Absent: no acute distress - Head Head exam: Present: atraumatic, normocephalic - Neck Neck exam general surgery: Present: supple, trachea midline - Respiratory Respiratory exam: Present: decreased breath sounds, prolonged expiratory phase, rhonchi, wheezes - Cardiovascular Cardiovascular exam: Present: RRR, +S1, +S2. Absent: systolic murmur - GI/Abdominal GI/Abdominal exam: Present: normal bowel sounds, soft, no peritoneal signs. Absent: distended, tenderness - Extremities Exam Extremities exam: Present: normal capillary refill, pedal edema, warm. Absent: mottling Internal Medicine: Result - Labs CBC & Chem 7: 09/18/18 05:30 09/18/18 05:30 Labs: Short CBC 09/17/18 09/18/18 Range/Units 15:50 05:30 WBC 2.7 L 3.5 L (4.3-11.1) K/mcL Hgb 12.2 11.6 (11.5-15.4) g/dL Hct 35.8 34.6 L (35.3-44.9) % Plt Count 57 L 64 L (140-400) K/mcL Neutrophils # 2.1 2.8 (1.6-8.9) K/mcL BMP 09/17/18 09/18/18 15:50 05:30 Sodium 126 L 126 L Potassium 3.4 L 3.3 L Chloride 98 98 Carbon Dioxide 23 25 BUN 7 L 6 L Creatinine 0.50 L 0.46 L Glucose 193 H 166 H Calcium 7.9 L 7.8 L Liver Function 09/18/18 Range/Units 05:30 Total Bilirubin 0.5 (0.3-1.0) mg/dL Direct Bilirubin 0.2 (0.0-0.2) mg/dL AST 63 H (13-39) Units/L ALT 26 (7-52) Units/L Alkaline Phosphatase 71 (34-104) Units/L Albumin 2.8 L (3.5-5.7) g/dL - ABG Interpretation ABG results: PT/INR, D-dimer PT 14.5 Seconds (9.4-12.1) H 09/16/18 16:57 D-Dimer 616 ng/mLFEU (0-500) H 09/16/18 16:57 Consult Discharge Plan - Plan Referrals: Mei Norman, WO[employer] HE[employer] CEMENTER [Advanced Practice Nurse] -
[2018-09-18] MEDS: *HR* LORazepam 0.5 MG TABLET PO PRN ×2 (13:04→18:01)
[2018-09-18 13:35] LABS: Folate 16.5 ng/mL (3.0-16.0)
[2018-09-18] MEDS: Levofloxacin 500 MG/100 ML 500 MG/100 ML BAG IVPB SCH (18:00)
[2018-09-19] MEDS: *HR* LORazepam 0.5 MG TABLET PO PRN ×3 (04:31→20:00)
[2018-09-19] MEDS: Benzonatate 100 MG CAPSULE PO PRN ×2 (04:31→20:00)
[2018-09-19 05:34] LABS: Basophils % 0.2 %; Hematocrit 37.8 % (35.3-44.9); Hemoglobin 12.4 g/dL (11.5-15.4); Immature Granulocytes % 0.4 % (0-4); Lymphocytes # 0.4 K/mcL (0.6-4.6); Mean Corpuscular HGB Conc 32.8 g/dL (31.6-35.5); Mean Corpuscular Volume 91.3 fL (83.0-100.0); Mean Platelet Volume 11.7 fL (9.4-12.4); Monocytes # 0.2 K/mcL (0.0-1.3); Monocytes % 4.7 %; Red Blood Count 4.14 M/mcL (3.82-4.97); Red Cell Distribution Width 14.7 % (11.5-14.5); Segmented Neutrophils % 85.7 %
[2018-09-19 05:36] LABS: Platelet Count 74 K/mcL (140-400)
[2018-09-19 06:11] LABS: Alanine Aminotransferase 30 Units/L (7-52); Albumin 3.1 g/dL (3.5-5.7); Albumin/Globulin Ratio 0.8 (1.1-2.2); Alkaline Phosphatase 79 Units/L (34-104); Aspartate Amino Transferase 65 Units/L (13-39); BUN/Creatinine Ratio 20 (6-26); Bilirubin,Direct 0.2 mg/dL (0.0-0.2); Bilirubin,Indirect 0.3 mg/dL (0.0-1.2); Bilirubin,Total 0.5 mg/dL (0.3-1.0); Blood Urea Nitrogen 10 mg/dL (8-23); Calcium 8.3 mg/dL (8.6-10.3); Carbon Dioxide 23 mEq/L (23-29); Chloride 101 mEq/L (98-107); Globulin 3.8 g/dL (2.4-3.5); Glucose 170 mg/dL (70-105); Magnesium 1.9 mg/dL (1.6-2.6); Osmolality,Calculated 271 (280-300); Potassium 4.2 mEq/L (3.5-5.1); Sodium 129 mEq/L (136-145); Total Protein 6.9 g/dL (6.4-8.9); eGFR For Non-African Americans > 60 (> 60)
[2018-09-19] MEDS: methylPREDNISolone 125 MG/2 ML VIAL IVP SCH ×3 (06:32→18:47)
[2018-09-19] MEDS: Magnesium Oxide 400 MG TABLET PO SCH ×2 (08:18→20:00)
[2018-09-19] MEDS: Multivit/Ca/Min/Fe/FA 1 TAB TABLET PO SCH (08:18)
[2018-09-19] MEDS: Lisinopril 20 MG TABLET PO SCH (08:19)
--- NOTE | 2018-09-19 10:17 | Internal Med Progress Note ---
Date of Encounter: 09/19/18 Time of Encounter: 10:15 - Assessment and plan (1) COPD exacerbation Current Visit: Yes Status: Acute Assessment and plan: she is about the same will continue oxygen, duonebs, solumedrol, levaquin,still oxygen depend, [place] have her ambulate and try to wean the oygen, error in charting that she was on bipap, this is on the wrong pt (2) Hepatitis C Current Visit: Yes Status: Acute Assessment and plan: will refer her to gi as an outpatient. 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 she is aware of the signs too. discussed to inform if she felt any withdrawl. will cont prn ativan (4) HTN (hypertension) Current Visit: Yes Status: Acute Assessment and plan: bp has been stable on home medication Qualifiers: Hypertension type: essential hypertension Qualified Code(s): I10 - E ssential (primary) hypertension (5) Tobacco abuse Current Visit: Yes Status: Acute (6) Thrombocytopenia Current Visit: Yes Status: Acute Assessment and plan: stable this am no active bleeding but cannot give her lovenox for dvt proph ylaxis now. on solumedrol for her copd exacerbation. likely due to the hep c (7) ETOH abuse Current Visit: Yes Status: Acute Assessment and plan: watching for withdrawl symptoms juan aggitation is better today getting prn ativan (8) Hypokalemia Current Visit: Yes Status: Acute Assessment and plan: will give more oral replacement likely due to dehydration and diarrhea. iin range todayr (9) Hyponatremia Current Visit: Yes Status: Acute Assessment and plan: improved with ivf likely due to dehydration and chronic etoh use. she does have an abnormal ct (10) Elevated d-dimer Current Visit: Yes Status: Acute Assessment and plan: her pulm art did not completely opacify, but no emboli noted. (11) Abnormal chest CT Current Visit: Yes Status: Acute Assessment and plan: discussed with patient her ct result. discussed could be inflam,infectious or malignancy. will refer to pulm. Agatha norman her pcp is aware and will make the rf from the office - Subjective Interval history: her breathing is the same today. still with the cough and purulent sputum, she does have some nausea, no emesis, diarrhea better. no abd pain but having cramping. no dizzy but still feel tired, no chest pain.saggitatioin better with ativan less withdrawl - Constitutional Vitals: Temp Pulse Resp BP Pulse Ox 97.5 F L 83 15 168/98 95 09/19/18 07:34 09/19/18 07:34 09/19/18 07:34 09/19/18 07:34 09/19/18 07:34 General appearance: Present: A&O X 3, pleasant, answers questions appropriately. Absent: no acute distress - Head Head exam: Present: atraumatic, normocephalic - Neck Neck exam general surgery: Present: supple, trachea midline - Respiratory Respiratory exam: Present: decreased breath sounds, prolonged expiratory phase, rhonchi, wheezes - Cardiovascular Cardiovascular exam: Present: RRR - GI/Abdominal GI/Abdominal exam: Present: normal bowel sounds, soft, no peritoneal signs. Absent: distended, guarding, tenderness - Extremities Exam Extremities exam: Present: warm. Absent: mottling, pedal edema (paul hose) - Skin Skin exam: Present: dry, warm Internal Medicine: Result - Labs CBC & Chem 7: 09/19/18 04:57 09/19/18 04:57 Labs: Short CBC 09/19/18 Range/Units 04:57 WBC 4.7 (4.3-11.1) K/mcL Hgb 12.4 (11.5-15.4) g/dL Hct 37.8 (35.3-44.9) % Plt Count 74 L (140-400) K/mcL Neutrophils # 4.0 (1.6-8.9) K/mcL BMP 09/19/18 04:57 Sodium 129 L Potassium 4.2 D Chloride 101 Carbon Dioxide 23 BUN 10 Creatinine 0.51 L Glucose 170 H Calcium 8.3 L Liver Function 09/19/18 Range/Units 04:57 Total Bilirubin 0.5 (0.3-1.0) mg/dL Direct Bilirubin 0.2 (0.0-0.2) mg/dL AST 65 H (13-39) Units/L ALT 30 (7-52) Units/L Alkaline Phosphatase 79 (34-104) Units/L Albumin 3.1 L (3.5-5.7) g/dL - ABG Interpretation ABG results: PT/INR, D-dimer PT 14.5 Seconds (9.4-12.1) H 09/16/18 16:57 D-Dimer 616 ng/mLFEU (0-500) H 09/16/18 16:57 Consult Discharge Plan - Plan Referrals: eMi Norman, MUFFLER HAND [Advanced Practice Nurse] -
[2018-09-19] MEDS: Ipratropium/Albuterol Neb 3 ML IH PRN ×2 (10:26→18:53)
[2018-09-19 16:35] LABS: HCV Quant Interpretation DETECTED (Not Detected); HCV Quant Log 4.13 log IU/mL
[2018-09-19] MEDS: Levofloxacin 500 MG/100 ML 500 MG/100 ML BAG IVPB SCH (18:45)
[2018-09-19] MEDS: 0.9 % Sodium Chloride 1,000 ML IVC SCH (18:56)
[2018-09-20] MEDS: methylPREDNISolone 125 MG/2 ML VIAL IVP SCH ×4 (00:34→19:18)
[2018-09-20] MEDS: *HR* LORazepam 0.5 MG TABLET PO PRN ×3 (00:36→16:24)
[2018-09-20] MEDS: Benzonatate 100 MG CAPSULE PO PRN (00:36)
[2018-09-20] MEDS: Ipratropium/Albuterol Neb 3 ML IH PRN ×2 (04:18→11:41)
[2018-09-20 05:49] LABS: Basophils % 0.3 %; Hematocrit 37.8 % (35.3-44.9); Hemoglobin 12.5 g/dL (11.5-15.4); Immature Granulocytes % 1.3 % (0-4); Lymphocytes # 0.5 K/mcL (0.6-4.6); Lymphocytes % 12.2 %; Mean Corpuscular HGB Conc 33.1 g/dL (31.6-35.5); Mean Corpuscular Hemoglobin 29.8 pg (28.0-33.3); Mean Corpuscular Volume 90.2 fL (83.0-100.0); Mean Platelet Volume 10.9 fL (9.4-12.4); Monocytes # 0.2 K/mcL (0.0-1.3); Monocytes % 4.2 %; Neutrophils # 3.1 K/mcL (1.6-8.9); Red Blood Count 4.19 M/mcL (3.82-4.97); Red Cell Distribution Width 14.6 % (11.5-14.5)
[2018-09-20 05:52] LABS: Platelet Count 78 K/mcL (140-400)
[2018-09-20 06:06] LABS: BUN/Creatinine Ratio 21 (6-26); Blood Urea Nitrogen 11 mg/dL (8-23); Calcium 8.4 mg/dL (8.6-10.3); Carbon Dioxide 25 mEq/L (23-29); Chloride 99 mEq/L (98-107); Glucose 181 mg/dL (70-105); Osmolality,Calculated 276 (280-300); Potassium 4.7 mEq/L (3.5-5.1); Sodium 131 mEq/L (136-145); eGFR For Non-African Americans > 60 (> 60)
[2018-09-20] MEDS: 0.9 % Sodium Chloride 1,000 ML IVC SCH (06:13)
[2018-09-20] MEDS: Lisinopril 20 MG TABLET PO SCH (07:52)
[2018-09-20] MEDS: Magnesium Oxide 400 MG TABLET PO SCH (07:53)
[2018-09-20] MEDS: Multivit/Ca/Min/Fe/FA 1 TAB TABLET PO SCH (07:53)
--- NOTE | 2018-09-20 11:51 | Internal Med Progress Note ---
Date of Encounter: 09/20/18 Time of Encounter: 12:45 - Assessment and plan (1) COPD exacerbation Current Visit: Yes Status: Acute Assessment and plan: she is about the same will continue oxygen, duonebs, solumedrol, levaquin,still oxygen depend, [place] have her ambulate and try to wean the oygen, error in charting that she was on bipapyesterday this is on the wrong pt (2) Hepatitis C Current Visit: Yes Status: Acute Assessment and plan: will refer her to gi as an outpatient. 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 she is aware of the signs too. discussed to inform if she felt any withdrawl. will cont prn ativan (4) HTN (hypertension) Current Visit: Yes Status: Acute Assessment and plan: bp has been getting higher. on home medication, Qualifiers: Hypertension type: essential hypertension Qualified Code(s): I10 - Essential (primary) hypertension (5) Tobacco abuse Current Visit: Yes Status: Acute Assessment and plan: discussed her abnormal chest ct and her need to quit smoking (6) Thrombocytopenia Current Visit: Yes Status: Acute Assessment and plan: stable this am no active bleeding but cannot give her lovenox for dvt prophylaxis now. on solumedrol for her copd exacerbation. likely due to the hep c will have nancy her pcp refer to heme at outpatient (7) ETOH abuse Current Visit: Yes Status: Acute Assessment and plan: watching for withdrawl symptoms juan aggitation is better today getting prn ativan (8) Hypokalemia Current Visit: Yes Status: Acute Assessment and plan: will give more oral replacement likely due to dehydration and diarrhea. in range today (9) Hyponatremia Current Visit: Yes Status: Acute Assessment and plan: improved with ivf likely due to dehydration and chronic etoh use. she is saline well on the iv now she does have an abnormal ct (10) Elevated d-dimer Current Visit: Yes Status: Acute Assessment and plan: her pulm art did not completely opacify, but no emboli noted. (11) Abnormal chest CT Current Visit: Yes Status: Acute Assessment and plan: discussed with patient her ct result. discussed could be inflam,infectious or malignancy. will refer to pulm. Nancy norman her pcp is aware and will make the rf from the office (12) Atrial fibrillation with RVR Current Visit: Yes Status: Acute Assessment and plan: new onset started in room with patient. will give cardizem. cannot anticoagulate due to thrombocytopenia, likel y due to copd, lung diseae - Subjective Interval history: her breathing is the same today. still with the cough and purulent sputum, she does have some nausea, no emesis, diarrhea better. no abd pain but having cramping. no dizzy but still feel tired, no chest pain.saggitatioin better with ativan less withdrawl - Constitutional Vitals: Temp Pulse Resp BP Pulse Ox 97.9 F 80 24 159/60 99 09/20/18 09:12 09/20/18 09:12 09/20/18 11:45 09/20/18 09:12 09/20/18 11:45 General appearance: Present: A&O X 3, pleasant, answers questions appropriately. Absent: no acute distress Internal Medicine: Result - Labs CBC & Chem 7: 09/20/18 15:08 09/20/18 15:08 Labs: Short CBC 09/20/18 Range/Units 05:00 WBC 3.8 L (4.3-11.1) K/mcL Hgb 12.5 (11.5-15.4) g/dL Hct 37.8 (35.3-44.9) % Plt Count 78 L (140-400) K/mcL Neutrophils # 3.1 (1.6-8.9) K/mcL BMP 09/20/18 05:00 Sodium 131 L Potassium 4.7 Chloride 99 Carbon Dioxide 25 BUN 11 Creatinine 0.53 L Glucose 181 H Calcium 8.4 L - ABG Interpretation ABG results: PT/INR, D-dimer PT 14.5 Seconds (9.4-12.1) H 09/16/18 16:57 D-Dimer 616 ng/mLFEU (0-500) H 09/16/18 16:57 - VTE Reasons for not Prescribing Prophylaxis: Medical contraindication Documentation of Mechanical Device: Graduated compression elastic hosiery Consult Discharge Plan - Plan Referrals: Mei Norman, [employer] DIRECTOR [Advanced Practice Nurse] -
[2018-09-20] MEDS: Ipratropium/Albuterol Neb 3 ML IH SCH ×2 (13:25→16:03)
[2018-09-20 15:11] LABS: Hematocrit 36.5 % (35.3-44.9); Hemoglobin 12.1 g/dL (11.5-15.4); Immature Granulocytes % 1.2 % (0-4); Lymphocytes # 0.4 K/mcL (0.6-4.6); Lymphocytes % 9.3 %; Mean Corpuscular HGB Conc 33.2 g/dL (31.6-35.5); Mean Corpuscular Volume 90.3 fL (83.0-100.0); Mean Platelet Volume 10.9 fL (9.4-12.4); Monocytes # 0.3 K/mcL (0.0-1.3); Monocytes % 6.3 %; Neutrophils # 3.6 K/mcL (1.6-8.9); Platelet Count 86 K/mcL (140-400); Red Blood Count 4.04 M/mcL (3.82-4.97); Red Cell Distribution Width 14.8 % (11.5-14.5); Segmented Neutrophils % 83.2 %
[2018-09-20 15:13] LABS: Platelet Estimate Decreased (Normal)
[2018-09-20 15:26] LABS: BUN/Creatinine Ratio 22 (6-26); Blood Urea Nitrogen 12 mg/dL (8-23); Calcium 8.3 mg/dL (8.6-10.3); Carbon Dioxide 25 mEq/L (23-29); Chloride 98 mEq/L (98-107); Glucose 288 mg/dL (70-105); Osmolality,Calculated 282 (280-300); Potassium 4.5 mEq/L (3.5-5.1); Sodium 131 mEq/L (136-145); eGFR For Non-African Americans > 60 (> 60)
[2018-09-20 15:29] LABS: Troponin I < 0.03 ng/mL (< 0.04)
[2018-09-20 15:44] LABS: Thyroid Stimulating Hormone 0.317 mcIU/mL (0.340-5.600)
[2018-09-20 16:01] LABS: Magnesium 1.7 mg/dL (1.6-2.6); Phosphorous 2.2 mg/dL (2.7-4.5)
[2018-09-20] MEDS: Levofloxacin 500 MG/100 ML 500 MG/100 ML BAG IVPB SCH (17:45)
[2018-09-20] MEDS: Levalbuterol Neb 1.25 MG/3 ML IH SCH ×2 (18:36→18:58)
--- NOTE | 2018-09-20 19:14 | Discharge Summary ---
Orders not resulted at time of discharge: Pending orders 09/16/18 16:57 Culture,Blood [BC] Stat 09/17/18 04:47 Hepatitis C Qnt Reflx Genotype AM 0400 09/20/18 13:02 EKG [ECG 12 lead ECG] [ECG] Stat Date of Encounter: 09/20/18 Time of Encounter: 19:11 - Discharge Diagnosis (1) COPD exacerbation Priority: Primary Status: Acute Comments: She was admitted for COPD exacerbation and hypoxia from the emergency room she just negative for influenza she did get Solu-Medrol Levaquin and duo nebs. She has not been really able to be weaned off the oxygen since she has been here she does continue to wheeze. (2) Hepatitis C Priority: Secondary Status: Acute Comments: She does have detectable hepatitis C viral load. Discussed doing an outpatient referral to GI. Her primary care provider Agatha is aware of this and has a referral in place at the office. 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 (4) HTN (hypertension) Priority: Secondary Status: Acute Comments: Her blood pressure remained stable to elevated today on her home medication did not make any changes to that. She is in the 130s now Qualifiers: Hypertension type: essential hypertension Qualified Code(s): I10 - Essential (primary) hypertension (5) Tobacco abuse Priority: Secondary Status: Acute Comments: Discussed that she should quit smoking on several occasions. She has not had cigarettes she has been in here she has not had a nicotine patch she has not been having withdrawal symptoms from that. (6) Thrombocytopenia Priority: Secondary Status: Acute Comments: Her platelets are low. She did get down to 57. There in the 80s now and that has been stable this is likely due to her liver disease due to hep C. Discussed an outpatient referral with hematology. But she is being transferred to [facility] so maybe she will get further evaluation down there. (7) ETOH abuse Priority: Secondary Status: Acute Comments: We did monitor for signs of alcohol withdrawal she did become irritable 1 day she did get some as needed Ativan. She is currently comfortable she is not agitated. We discussed at length that she really needs to give up the alcohol because alcohol and hep C really leads to accelerated liver failure. She has had alcohol she states for several days prior to admission due to the fact that she was ill. Hope she will continue to stay away from that as an outpatient (8) Hypokalemia Priority: Secondary Status: Acute Comments: She did receive by mouth potassium. She has alcohol use and dehydration due to her illness. That is in range now (9) Hyponatremia Priority: Secondary Status: Acute Comments: Her hyponatremia was due to dehydration alcohol abuse diarrhea. She did respond to IV fluids. Her sodium whenshe came in was 121 is 131 today so she is improved. Her IV saline well now (10) Elevated d-dimer Priority: Secondary Status: Acute Comments: Her d-dimer is elevated she had a CT to rule out PE the pulmonary arteries were not fully opacified but no obvious PE. (11) Abnormal chest CT Priority: Secondary Status: Acute Comments: She is aware of the abnormal CT that could be inflammation infection or malignancy. Discussed doing an outpatient pulmonary consult with her that still may need to be outpatient but maybe she will get further level care done at [facility]. (12) Atrial fibrillation with RVR Priority: Secondary Status: Acute Comments: She developed A. fib with RVR this afternoon she is currently not having any symptoms she does have any chest pain or palpitations. She was given a IV push dose of Cardizem that did not control her rate she was titrated on the Cardizem drip until she was at 15 pharmacy will not let us go up on the dose anymore. Discussed with hospitalist for transfer to [facility]. Considered metoprolol but with her COPD and put her in the squad transport her down there was worried about increasing respiratory difficulty also digoxin but since she is not having symptoms will keep on Cardizem drip transfer down to [facility]. She is not a candidate for anticoagulation due to the fact that she has thrombocytopenia liver disease. Hospital course: Ms. Noble is a 58 year old female Who presented from the emergency room with coughing wheezing shortness of breath. She was found to be hypoxic she is placed on oxygen she was on oxygen at home. She was found have a COPD exacerbation site Medrol Levaquin duo nebs and oxygen were started. She has not really changed from a respiratory standpoint she has not been able to be weaned off oxygen. She continues to have wheezing and diminished breath sounds on exam. Today she did develop A. fib with RVR. She was started on heart exam IV push the Cardizem drip we have been able to convert her rate control her. Discussed with the hospitalist at [facility] and they have accepted her for transfer. She is not a candidate for anticoagulation due to her thrombocytopenia. She also came in with hyponatremia due to dehydration and heavy alcohol use. That did respond to IV fluids she is with a sodium of 131 from an initial sodium of 121 on admission. She was also hypokalemic when she came in. She did respond to oral potassium replacement on that. She did have some diarrhea prescribe with days that is since resolved. She was negative for influenza when she came in. She also has thrombocytopenia and neutropenia. She does have seen that likely due to her liver disease her LFTs are abnormal as well. Discussed that she needs to stop drinking stop smoking because of the long-term health consequences of these. She was mo nitored for alcohol withdrawal there was really only one day when she became agitated she did get a few doses of as needed Ativan. On transfer she was awake alert and oriented. She was in no acute distress she was not have any palpitations or chest pain. She was short of breath but was not any change prior to her being in A. fib with RVR. She did have an abnormal CT scan of her chest. It said possible inflammation infection or malignant process. She is aware of this an outpatient pulmonology consult was being arranged but now she is being transferred down to [facility]. - Time Spent with Patient Total time spent providing and/or coordinating discharge services: - Discharge Medications Prescriptions: New Levalbuterol Neb [Xopenex Neb] 1.25 mg IH [id number] vial.neb Diltiazem [Cardizem] 125 mg IVC CONT vial Diltiazem [Cardizem] 125 mg IVC CONT vial Diltiazem [Cardizem] 125 mg IVC CONT vial LORazepam [Ativan] 0.5 mg PO Q4HR PRN tablet PRN Reason: Alcohol Withdrawal Naloxone [Narcan] 0.4 mg IVP Q2M PRN inj PRN Reason: See Comments Potassium Chloride 40 meq PO BIDWM tab.er.prt Magnesium Oxide [Mag-Ox] 400 mg PO BID tablet methylPREDNISolone [Solu-MEDROL] 60 mg IVP Q6H vial Benzonatate [Tessalon] 200 mg PO TID PRN capsule PRN Reason: Cough Multivit/Ca/Min/Fe/FA [Thera M Plus] 1 tab PO DAILY tablet Continue Ibuprofen [Motrin] 600 mg PO Q8HR #20 tab Montelukast Sodium 10 mg PO DAILY Albuterol Sulfate [Albuterol Inhaler] 0 puff IH Q4HR Lisinopril [Zestril] 20 mg PO DAILY EPINEPHrine [Epipen JR] 0.3 mg IJ ONCE #1 mls Discontinued Nabumetone 500 mg PO BID PRN PRN Reason: Inflammation Home Medications: Albuterol Sulfate [Albuterol Inhaler] 0 puff IH Q4HR 05/26/15 [History] Lisinopril [Zestril] 20 mg PO DAILY 05/26/15 [History] EPINEPHrine [Epipen JR] 0.3 mg IJ ONCE #1 mls 03/03/16 [Rx] Ibuprofen [Motrin] 600 mg PO Q8HR #20 tab 12/16/17 [Rx] Montelukast Sodium 10 mg PO DAILY 12/16/17 [History] Benzonatate [Tessalon] 200 mg PO TID PRN capsule 09/20/18 [Rx] Diltiazem [Cardizem] 125 mg IVC CONT vial 09/20/18 [Rx] Diltiazem [Cardizem] 125 mg IVC CONT vial 09/20/18 [Rx] Diltiazem [Cardizem] 125 mg IVC CONT vial 09/20/18 [Rx] LORazepam [Ativan] 0.5 mg PO Q4HR PRN tablet 09/20/18 [Rx] Levalbuterol Neb [Xopenex Neb] 1.25 mg IH [id number] vial.neb 09/20/18 [Rx] Magnesium Oxide [Mag-Ox] 400 mg PO BID tablet 09/20/18 [Rx] Multivit/Ca/Min/Fe/FA [Thera M Plus] 1 tab PO DAILY tablet 09/20/18 [Rx] Naloxone [Narcan] 0.4 mg IVP Q2M PRN inj 09/20/18 [Rx] Potassium Chloride 40 meq PO BIDWM tab.er.prt 09/20/18 [Rx] methylPREDNISolone [Solu-MEDROL] 60 mg IVP Q6H vial 09/20/18 [Rx] Allergies/Adverse Reactions: Allergy/AdvReac Type Severity Reaction Status Date / Time chlorpromazine AdvReac Joint Pain Verified 12/16/17 10:53 [From Thorazine] codeine AdvReac See Verified 05/26/15 17:16 Comments morphine AdvReac See Verified 05/26/15 17:16 Comments Date of admission: 09/19/18 15:24 Primary care physician: Danielle Lopez MD - Constitutional Vitals: Temp Pulse Resp BP Pulse Ox 98.1 F 152 21 136/90 96 09/20/18 16:54 09/20/18 16:54 09/20/18 18:57 09/20/18 16:54 09/20/18 18:57 General appearance: Present: A&O X 3, pleasant, answers questions appropriately. Absent: no acute distress - Head Head exam: Present: atraumatic, normocephalic - Neck Neck exam general surgery: Present: trachea midline. Absent: tenderness - Respiratory Respiratory exam: Present: decreased breath sounds, prolonged expiratory phase, wheezes. Absent: accessory muscle use - Cardiovascular Cardiovascular exam: Present: tachycardia. Absent: systolic murmur - GI/Abdominal GI/Abdominal exam: Present: normal bowel sounds, soft, no peritoneal signs. Absent: distended, guarding, tenderness - Extremities Exam Extremities exam: Present: normal capillary refill, pedal edema, warm. Absent: mottling - Skin Skin exam: Present: dry, warm. Absent: rash - Patient Status Disposition: Transfer Other Condition: Serious Functional capacity at discharge: independent ambulation Overall status at discharge: other - Discharge Instructions Instructions: Chronic Obstructive Pulmonary Disease (DC), Atrial Fibrillation (DC), Chronic Hypertension (DC) Follow Up With: Mei Camargo CLINICAL AIDE [Advanced Practice Nurse] - Forms: ED Satisfaction Letter - Diet and Activity Diet: diabetic diet - VTE Reasons for not Prescribing Prophylaxis: Medical contraindication Documentation of Mechanical Device: Graduated compression elastic hosiery
[2018-09-20 19:16] VITALS: BP 135/78
[2018-09-23 14:01] LABS: HCV Genotype by Sequencing 1A OR 1B
== END 2018-09-20 19:40 | disposition other institution (70) | DRG 140 ==
LOC: EMEROOGRE 16:07 → INPGRE 16:07
PROVIDERS: ADMIT Family Medicine; ATTEND Family Medicine